=== PATIENT | female | born 1945 | race Caucasian/White ===

== ENCOUNTER 2020-01-19 15:02 | Inpatient (IN) ==
[2020-01-19 16:46] LABS: Basophils # 0.1 10*3/uL (0.0-0.2); Basophils % 0.6 % (0.0-0.8); Eosinophils # 0.3 10*3/uL (0.0-0.87); Eosinophils % 3.1 % (0.00-10.9); Hematocrit 37.3 VOL% (35.7-47.0); Hemoglobin 11.9 GM/DL (12.0-16.0); Immature Granulocytes % 0.3 %; Immature Granulocytes Absolute 0.03 #; Lymphocytes # 2.3 10*3/uL (1.4-4.0); Lymphocytes % 25.7 % (21.3-54.2); Mean Corpuscular HGB Conc 31.9 GM/DL (32-36); Mean Corpuscular Volume 85.9 FL (87-102); Mean Platelet Volume 10.2 FL (9.6-12.0); Monocytes % 7.8 % (1.7-12.7); Neutrophils % 62.5 % (38.7-73.9); Platelet Count 272 T/CUMM (130-400); Red Blood Count 4.34 MC/CUMM (3.8-5.5); Red Cell Distribution Width 17.5 % (9.3-17.3); White Blood Count 8.9 T/CUMM (4-12)
[2020-01-19 16:58] LABS: INR 1.1; PT Patient Result 11.3 SECS (9.8-11.9); Partial Thromboplastin Time 28.9 SECS (23.9-33.8)
[2020-01-19 17:02] LABS: Albumin 3.3 G/DL (3.4-5.0); Bilirubin,Total 0.4 MG/DL (0.2-1.0); Calcium 8.8 MG/DL (8.5-10.1); Total Protein 7.7 G/DL (6.4-8.3)
[2020-01-19] MEDS ORDERED: FUROSEMIDE 20 MG TABLET PO PRN (17:20)
[2020-01-19] MEDS ORDERED: diphenhydrAMINE CAP 25 MG CAPSULE PO PRN (17:45)
[2020-01-19] MEDS ORDERED: ONDANSETRON 4 MG/2 ML VIAL IV PRN (17:45)
[2020-01-19] MEDS ORDERED: GLUCAGON 1 MG VIAL IM PRN (17:45)
[2020-01-19] MEDS ORDERED: ZALEPLON 5 MG CAPSULE PO PRN (17:45)
[2020-01-19] MEDS ORDERED: PROMETHAZINE 25 MG/1 ML VIAL IM PRN (17:45)
[2020-01-19] MEDS ORDERED: hydrALAZINE 20 MG/1 ML VIAL IV PRN (17:45)
[2020-01-19] MEDS ORDERED: guaiFENesin/DM ER 600-30 MG TABLET PO PRN (17:45)
[2020-01-19] MEDS ORDERED: NICOTINE 21 MG/24 HR PATCH TRANSDERM PRN (17:45)
[2020-01-19] MEDS ORDERED: ACETAMINOPHEN 325 MG TABLET PO PRN (17:45)
[2020-01-19] MEDS ORDERED: SIMETHICONE CHEW 125 MG TABLET PO PRN (17:45)
[2020-01-19] MEDS ORDERED: ALUMINUM/MAGNES/SIMETH MAX STR 30 ML UDCUP PO PRN (17:45)
[2020-01-19] MEDS ORDERED: BISACODYL 5 MG TABLET PO PRN (17:45)
[2020-01-19] MEDS ORDERED: DOCUSATE SODIUM 100 MG CAPSULE PO PRN (17:45)
[2020-01-19] MEDS ORDERED: LACTULOSE 20 GM/30 ML UDCUP PO PRN (17:45)
[2020-01-19] MEDS ORDERED: DEXTROSE 50% 25 GM/50 ML VIAL IV PRN (17:45)
[2020-01-19] MEDS ORDERED: HEPARIN DRIP 25,000 UNITS/500 ML PREMIX IV SCH (20:00)
[2020-01-19] MEDS ORDERED: HEPARIN 5,000 UNIT/1 ML VIAL IV ONE (20:00)
[2020-01-19] MEDS ORDERED: CALCIUM (CARBONATE) 600 MG TABLET PO SCH (21:00)
[2020-01-19] MEDS ORDERED: CHOLECALCIFEROL 5,000 UNIT TABLET PO SCH (21:00)
[2020-01-19] MEDS: OMEGA 3 ACID ETHYL ESTERS 1 GM CAPSULE PO SCH (21:30)
[2020-01-20 01:43] LABS: Basophils # 0.1 10*3/uL (0.0-0.2); Basophils % 0.8 % (0.0-0.8); Eosinophils # 0.3 10*3/uL (0.0-0.87); Eosinophils % 3.7 % (0.00-10.9); Hematocrit 34.6 VOL% (35.7-47.0); Hemoglobin 11.1 GM/DL (12.0-16.0); Immature Granulocytes % 0.3 %; Immature Granulocytes Absolute 0.03 #; Lymphocytes % 31.9 % (21.3-54.2); Mean Corpuscular HGB Conc 32.1 GM/DL (32-36); Mean Corpuscular Volume 86.1 FL (87-102); Mean Platelet Volume 9.6 FL (9.6-12.0); Monocytes % 8.3 % (1.7-12.7); Platelet Count 243 T/CUMM (130-400); Red Blood Count 4.02 MC/CUMM (3.8-5.5); Red Cell Distribution Width 17.4 % (9.3-17.3); White Blood Count 9.3 T/CUMM (4-12)
[2020-01-20 02:07] LABS: Alanine Aminotransferase 22 U/L (13-56); Albumin 2.8 G/DL (3.4-5.0); Alkaline Phosphatase 63 U/L (45-117); Aspartate Amino Transferase 22 U/L (0-37); Bilirubin,Total < 0.39 MG/DL (0.2-1.0); Blood Urea Nitrogen 23 MG/DL (7-18); Calcium 8.5 MG/DL (8.5-10.1); Estimated Glom Filtration Rate 36 ML/MIN; Glucose 106 MG/DL (74-106); Osmolality,Calculated 278.7 MOS/KG (273-304); Total Protein 6.5 G/DL (6.4-8.3)
[2020-01-20 02:17] LABS: Risk Ratio 3.13; Thyroid Stimulating Hormone 0.388 uIU/ml (0.358-3.74); VLDL CHOLESTEROL 79.4 MG/DL
[2020-01-20] MEDS ORDERED: LEVOTHYROXINE 100 MCG TABLET PO SCH (06:30)
[2020-01-20] MEDS ORDERED: SIMVASTATIN 80 MG TABLET PO SCH (09:00)
[2020-01-20] MEDS ORDERED: DILTIAZEM CD 300 MG CAPSULE PO SCH (09:00)
[2020-01-20] MEDS ORDERED: allopurinoL 100 MG TABLET PO SCH (09:00)
[2020-01-20] MEDS ORDERED: PANTOPRAZOLE 40 MG TABLET PO SCH (09:00)
[2020-01-20] MEDS ORDERED: SIMVASTATIN 40 MG TABLET PO SCH (09:00)
[2020-01-20] MEDS ORDERED: APIXABAN 5 MG TABLET PO SCH (09:00)
[2020-01-20] MEDS: OMEGA 3 ACID ETHYL ESTERS 1 GM CAPSULE PO SCH (09:07)
[2020-01-20 09:58] VITALS: BP 137/79
[2020-01-23 13:02] LABS: DRVVT Screen Ratio 2.09 ratio (<1.20); INR 1.5 (0.9-1.1)
[2020-01-26 13:01] LABS: Coag Factor VIII Activity Assa > 151 % (55 - 200)
[2020-01-27] MEDS ORDERED: APIXABAN 5 MG TABLET PO SCH (09:00)
[2020-01-27 20:21] LABS: FACV Specimen Whole Blood
[2020-01-30 11:07] LABS: Protein C Antigen 129 % (70-150)
[2020-01-31 16:51] LABS: PT PCR Specimen Whole Blood
[2020-01-31 16:52] LABS: Prothrombin (F2) G20210A Varia Negative
[2020-02-07 13:13] LABS: DRVVT Confirmation 0.79 ratio (<1.20); PT Mix 1:1 (Mayo Reflex) 13.7 sec (9.4 - 12.5); Reptilase Time, P 23.1 sec; Thrombin Time (Bovine), P > 300.0 sec
== END 2020-01-20 15:23 | disposition home or self-care (01) | DRG 176 ==
LOC: N.ED 15:02 → N.EDINP 17:45 → N.TELES 19:38
PROVIDERS: ADMIT Internal Medicine; ATTEND Internal Medicine